=== PATIENT | male | born 1995 | race Caucasian/White ===

== ENCOUNTER 2021-09-03 10:33 | Outpatient (RCR) | payer OTHER | END 2021-09-28 | disposition home or self-care (01) | LOC: WSOT | DX: S56.429D Laceration of extensor muscle, fascia and tendon of unspecified finger at forearm level, subsequent encounter (principal); S61.209D Unspecified open wound of unspecified finger without damage to nail, subsequent encounter; X58.XXXD Exposure to other specified factors, subsequent encounter ==

== ENCOUNTER 2021-10-24 08:00 | Outpatient (RCR) | payer OTHER | END 2021-10-29 | disposition still patient (30) | LOC: WSOT | DX: S56.429A Laceration of extensor muscle, fascia and tendon of unspecified finger at forearm level, initial encounter (principal); S61.209A Unspecified open wound of unspecified finger without damage to nail, initial encounter ==

== ENCOUNTER 2021-11-11 08:00 | Outpatient (RCR) | payer OTHER | END 2021-11-11 11:45 | disposition home or self-care (01) | LOC: WSOT 08:00 | DX: S56.429A Laceration of extensor muscle, fascia and tendon of unspecified finger at forearm level, initial encounter (principal); S61.209A Unspecified open wound of unspecified finger without damage to nail, initial encounter ==